=== PATIENT | male | born 1980 | race Two or more races ===

== ENCOUNTER → 2024-04-30 | Outpatient (CLI) | payer MEDICAID, SELFPAY ==
--- NOTE | 2024-04-30 15:30 | XR_ITS ---
Examination: CT brain head without contrast. 2-D sagittal coronal reconstructions Date and time of exam:April 30, 2024 1606 hours INDICATIONS: History brain trauma, patient in a coma 11 months, epilepsy unspecified not intractable CTDI: vol (mGy):52.8 DLP: (mGycm):1180 Technique: Multiple CT axial sections of the brain have been obtained, 5 mm slice thickness. Contrast has not been administered. 2-D sagittal, coronal reconstructions have been obtained Low dose protocols were performed. One or more of the following dose reduction techniques were used; automated exposure control, adjustment of the mA and/or KV according to patient size, use of iterative reconstruction technique. Findings: Large right frontal parietal temporal craniotomy defect Focal encephalomalacia left temporal lobe Ventricles are not enlarged No midline shift of the ventricles Tiny hyperdensity peripheral to the right frontal temporal lobe, axial image 33, which may represent postsurgical change, measuring 2 mm in thickness, clinical correlation advised Tonsils are not herniated Significant chronic right maxillary sinusitis IMPRESSION: Extensive chronic changes as above No mass effect Tiny hyperdensity peripheral to the right frontal parietal lobe, axial image 33 which may represent postsurgical change, tiny area of hemorrhage not excluded Recommend 2-3 day follow-up CT brain scan
== END | disposition home or self-care (01) ==
LOC: CCTX 15:50
PROVIDERS: Referring Provider Psychiatry & Neurology Neurology; Visit Provider Psychiatry & Neurology Neurology
DX: G40.909 Epilepsy, unspecified, not intractable, without status epilepticus (principal); Z87.820 Personal history of traumatic brain injury
CPT/HCPCS: 70450